=== PATIENT | female | born 1945 | race Caucasian/White ===

== ENCOUNTER → 2016-12-11 | Outpatient (CLI) | payer BC ==
[~2016-12-11] MED LIST: AMPH10TA2 PO; AMPH20TA2 PO; ANAS1TAB19 PO; ASCO1CAP3 PO; ASPI-321 PO; B-COTAB18 PO; BUPR-79 PO; CALC-354 PO; CHOL2000 PO; CLON0.1T12 PO; EZET10TA63 PO; FLUT0.15 NAE; LEVO125T72 PO; MELA1TAB5 PO; MULT-506 PO; OXCA150T2 PO; SIMV80TA2 PO
[2016-12-11 13:25] VITALS: BP 129/76; PULSE 89; TEMP 36.9; O2SAT 94
--- NOTE | 2016-12-11 16:48 | Radiation Oncology Follow-Up ---
Radiation Oncology Follow-Up Date of Visit Dec 11, 2016. Diagnosis (1) Intraductal cancer of right breast Status: Acute Onset Date: 02/02/2016 Stage: 0 Permanent Comment: Abnormal right breast mammogram Status post stereotactic biopsy 02/02/2016 revealing DCIS Estrogen receptor negative and progesterone receptor negative Status post right needle localization lumpectomy and right sentinel lymph node biopsy 03/08/2016 Stage pTis pN0 M0 Status post completion of radiation therapy 05/04/2016 received 3850 cGy utilizing accelerated partial breast irradiation. Last Edited By: Jarod Mayen on Dec 11, 2016 16:42 Interim History Ms. Champagne is a 71-year-old female with a diagnosis of right breast DCIS treated with a lumpectomy and adjuvant radiation therapy which completed in April 2016. The patient was treated with accelerated partial breast radiation and received dose of 3850 cGy in in 10 fractions over 5 days. The patient is currently receiving Arimidex underneath the supervision of Dr. Zaldivar. We are now seeing the patient for follow-up evaluation. Overall, the patient is doing relatively well. She does not any significant side effects from the Arimidex. She has no issues following radiation therapy. She is scheduled for next of the mammograms in January 2017. Allergies Coded Allergies: BEE STING (Unverified Allergy, Unknown, ANAPHYLAXIS-GETTING ALLERY SHOTS, 03/08/16) NO KNOWN DRUG ALLERGIES (Unverified Allergy, Unknown, NONE, 03/08/16) Home Medications Scheduled Amphetamine-Dextroamphetamine 10MG (Adderall 10MG), 1 TAB PO QDL Amphetamine-Dextroamphetamine 20MG (Adderall 20MG), 20 MG PO QAM Anastrozole (Arimidex), 1 TAB PO DAILY Aspirin (Aspirin Adult Low Strengt), 81 MG PO NOON B-Complex Vitamins (Vitamin B Complex), 1 TAB PO QPM Bupropion (Wellbutrin Sr), 150 MG PO BID Calcium Carbonate-Cholecalcife (Caltrate 600+D), 1 TAB PO BID Cholecalciferol (Vitamin D3), 5,000 UNITS PO NOON Clonidine Hcl (Catapres), 0.1 MG PO HS Ezetimibe (Zetia), 10 MG PO NOON Fluticasone Propionate (Nasal) (Flonase Allergy Relief), 2 SPRAYS ABRIL HS Levothyroxine Sodium (Synthroid), 125 MCG PO QAM Melatonin (Kp Melatonin), 1 TAB PO HS Multivitamin (Multivitamin), 1 TAB PO NOON Oxcarbazepine (Trileptal), 75 MG PO BID Simvastatin (Zocor), 80 MG PO NOON Review of Systems Gastrointestinal: Symptoms: WNL Oral: Symptoms: No Problems Respiratory: Symptoms: Dry Cough Other Respiratory: occ dry cough Urinary: Symptoms: Nocturia Comments: nocturia times 1 Skin: Symptoms: No Problems Breast: Right Upper Arm Measurement: 27.5 Right Mid Arm Measurement: 24.0 Right Wrist Measurement: 16.9 Left Upper Arm Measurement: 26.5 Left Mid Arm Measurement: 23.5 Left Wrist Measurement: 16.5 Arm Dominence: Right Patient Cosmetic Evaluation: Excellent Staff Cosmetic Evalaluation: Excellent Physical Exam Vital Signs Date Time Temp Pulse Resp B/P Pulse Ox O2 Delivery O2 Flow Rate FiO2 12/11/16 13:25 36.9 89 18 129/76 94 Pain: Side: Bilateral Patient Pain Scale: 0 - 10 Initial Pain Intensity: 0.0 General Appearance: WD/WN, no apparent distress Eyes: normal inspection Neck: supple, no adenopathy Respiratory/Chest: chest non-tender, lungs clear, normal breath sounds, no respiratory distress Breast: Left breast: no masses, no axillary adenopathy. Right Breast: status post lumpectomy. No late radiation changes noted. No masses or axillary adenopathy. Cardiovascular: regular rate, rhythm, no edema, no gallop, no JVD, no murmur Laboratory Studies Test 09/14/16 08:39 09/18/16 10:02 Sodium Level 141 mmol/L (136-145) Potassium Level 4.1 mmol/L (3.5-5.1) Chloride Level 105 mmol/L (98-107) Carbon Dioxide Level 30 mmol/L (21-32) Anion Gap 6.0 mmol/L (3-11) Blood Urea Nitrogen 18 mg/dl (7-18) Creatinine 1.10 mg/dl (0.60-1.20) Estimated GFR () 59.3 Estimated GFR (Non- 51.2 BUN/Creatinine Ratio 16.3 (10-20) Random Glucose 97 mg/dl (70-99) Calcium Level 8.6 mg/dl (8.5-10.1) Total Bilirubin 0.4 mg/dl (0.2-1) Aspartate Amino Transferase (AST) 20 U/L (15-37) Alanine Aminotransferase (ALT) 39 U/L (12-78) Alkaline Phosphatase 107 U/L (45-117) Total Protein 7.3 gm/dl (6.4-8.2) Albumin 3.5 gm/dl (3.4-5.0) Globulin 3.8 gm/dl (2.5-4.0) Albumin/Globulin Ratio 0.9 (0.9-2) Triglycerides Level 136 mg/dl (0-150) Cholesterol Level 164 mg/dl (0-200) HDL Cholesterol 62 mg/dl LDL Cholesterol, Calculated 75 mg/dl VLDL Cholesterol, Calculated 27 mg/dl Cholesterol/HDL Ratio 2.6 Thyroid Stimulating Hormone (TSH) 6.830 uIu/ml (0.300-4.500) Free Thyroxine 0.93 ng/dl (0.80-1.60) Hepatitis C Antibody NEG (NEG) Additional Studies UNILATERAL RIGHT DIGITAL DIAGNOSTIC MAMMOGRAM 3D/2D WITH CAD: 08/07/2016 CLINICAL HISTORY: 70-year-old woman who presents for first follow-up/new baseline of the right breast status post treatment for breast cancer in which a lumpectomy was performed 03/08/2016. Comparison is made to exams dated: 02/02/2016 stereotactic biopsy, 01/25/2016 mammogram, 10/24/2015 mammogram, 10/21/2014 mammogram, 10/20/2013 mammogram, and mammogram - [facility]. FINDINGS: Right CC and MLO 2-D digital and tomosynthesis images, spot magnification right CC and ML views were obtained. There are scattered areas of fibroglandular density in the right breast. Current study was also evaluated with a Computer Aided Detection (CAD) system. There is expected architectural distortion and associated surgical clips in the 6:00 middle one third of the right breast, at the site of prior lumpectomy. There is mild diffuse skin thickening and minimal trabecular edema. There are no residual microcalcifications near the surgical site. Overall, no suspicious clustered microcalcifications are seen in the right breast. There are a few scattered stable benign coarse calcifications and punctate microcalcifications anteriorly. No obvious new mass or architectural distortion. IMPRESSION: ACR-BI-RADS CATEGORY 3: PROBABLY BENIGN Expected post treatment changes in the right breast, without mammographic evidence of malignancy. A follow-up right mammogram is recommended in 6 months to ensure one-year stability after treatment. Annual left mammography will be due at that time. These results and recommendations were discussed with the patient at the time of the exam. Assessment & Plan Ms. Champagne is a 71-year-old female who presents with right breast DCIS treated with lumpectomy and adjuvant radiation therapy which completed in April 2016. The patient is currently on Arimidex underneath the supervision of Dr. Zaldivar. We are now seeing the patient follow up evaluation. Overall, the patient is relatively well with no significant issues regarding radiation therapy. We are happy with her progress and there is no evidence of recurrence. We would like to see her back in one-year for follow-up evaluation. The patient will continue to also follow with medical oncology and her primary care physician. Again, she has confirmed that her next set of mammograms are already scheduled however we have encouraged her to call us if she has any issues. The patient was encouraged to call so she is in questions or concerns or she would like to be seen earlier. Total Time In Follow-Up I spent 15 minutes examining and counseling the patient. I spent 10 minutes completing this note. Copy To Cricket Zaldivar D.O.; Umair Vann M.D.
== END | disposition home or self-care (01) ==
LOC: C.ONC 13:19
PROVIDERS: ATTEND Radiology Radiation Oncology
DX: C50.911 Malignant neoplasm of unspecified site of right female breast (principal)

== ENCOUNTER → 2017-02-04 | Outpatient (CLI) | payer BC ==
[~2017-02-04] MED LIST changes: -ASCO1CAP3 PO
--- NOTE | 2017-02-04 13:55 | MAMMOGRAPHY REPORT ---
BILATERAL DIGITAL DIAGNOSTIC MAMMOGRAM TOMOSYNTHESIS WITH CAD: 02/04/2017 CLINICAL HISTORY: 71-year-old woman with a personal history of right breast DCIS status post lumpect neil and radiation presents for a 1 year follow-up after treatment. Bilateral screening mammography was performed in addition to evaluation of the surgical site in the right breast. TECHNIQUE: Bilateral CC and MLO to the digital and tomosynthesis images, 2-D right XCCL and spot mag nification right CC and ML views were obtained. Current study was also evaluated with a Computer Aid ed Detection (CAD) system. COMPARISON: Comparison is made to exams dated: 08/07/2016 mammogram, 02/02/2016 mammogram, and 015 mammogram - [facility]. BREAST COMPOSITION: There are scattered areas of fibroglandular density in both breasts. FINDINGS: There is expected architectural distortion and associated surgical clips in the 6:00 to 7: 00 right breast, at the site of prior lumpectomy. There are scattered benign rim calcifications nae aterally. No new suspicious mass, architectural distortion or cluster of microcalcifications is see n in either breast. IMPRESSION: ACR-BI-RADS CATEGORY 3: PROBABLY BENIGN 1. Stable posttreatment changes in the right breast, without mammographic evidence of malignancy. Advise another close follow-up in 6 months to ensure stability status post treatment. 2. Stable mammographic appearance of the left breast, without mammographic evidence of malignancy. Advise follow-up in 1 year for routine screening. These results and recommendations were discussed with the patient at the time of the exam. Approximately 10% of breast cancers are not detected with mammography. A negative mammographic repor t should not delay biopsy if a clinically suggestive mass is present. Cayla Cervantes M.D. ay/:02/04/2017 12:28:08 [employer] Manager: Mago JACOBSON(Rosalba)(Alycia), [facility] letter sent: Personal History 3 BI-RADS Code: ACR-BI-RADS Category 3: Probably Benign
== END | disposition home or self-care (01) ==
LOC: C.MAMM 10:36
PROVIDERS: ATTEND Radiology Radiation Oncology
DX: N64.89 Other specified disorders of breast (principal)

== ENCOUNTER → 2017-03-15 | Outpatient (CLI) | payer BC ==
[~2017-03-15] MED LIST changes: +ASPCH81X PO; +AZEL0.15 NAE; +DEXT1TAB15 PO; +FLUV100T12 PO; +LEVO137T3 PO
[2017-03-15 12:18] LABS: BASO % 0.4 %; BASO ABS # 0.02 K/uL (0-0.2); COMPLETE YES; EOS % 2.9 %; HEMATOCRIT 43.8 % (37-47); LYMPH % 37.9 %; LYMPH ABS # 1.81 K/uL (1.2-3.4); MEAN CELL VOLUME 93.4 fL (80-100); MEAN CORPUSCULAR HEMOGLOBIN 30.7 pg (25-34); MEAN CORPUSCULAR HGB CONC 32.9 g/dl (32-36); MEAN PLATELET VOLUME 9.5 fL (7.4-10.4); MONO % 10.9 %; NEUT % 47.9 %; PLATELET COUNT 283 K/uL (130-400); RED BLOOD COUNT 4.69 M/uL (4.2-5.4); WHITE BLOOD COUNT 4.77 K/uL (4.8-10.8)
[2017-03-15 12:41] LABS: CALCIUM 9.3 mg/dl (8.5-10.1)
[2017-03-15 12:51] LABS: ALT/SGPT 55 U/L (12-78); AST/SGOT 25 U/L (15-37); BLOOD UREA NITROGEN 17 mg/dl (7-18); BUN/CREATININE RATIO 18.7 (10-20); CARBON DIOXIDE 31 mmol/L (21-32); CHLORIDE 105 mmol/L (98-107); CHOLESTEROL 179 mg/dl (0-200); GLUCOSE 98 mg/dl (70-99); POTASSIUM 4.2 mmol/L (3.5-5.1); SODIUM 142 mmol/L (136-145); TRIGLYCERIDES 121 mg/dl (0-150); VERY LOW DENSITY LIPOPROT CALC 24 mg/dl
[2017-03-15 12:55] LABS: ALB/GLOB RATIO 1.1 (0.9-2); ALKALINE PHOSPHATASE 105 U/L (45-117); CHOLESTEROL/HDL RATIO 2.7; HDL CHOLESTEROL 67 mg/dl; LDL CHOLESTEROL CALCULATED 88 mg/dl; THYROID STIMULATING HORMONE 0.559 uIu/ml (0.300-4.500)
--- NOTE | 2017-04-29 11:24 | CODING QUERY NO DIAGNOSIS ---
TREATMENT RENDERED WITHOUT A DIAGNOSIS To promote full compliance with coding requirements relating to patient care, physician participation is requested in all cases of stranding supervisor uncertainty. Please assist us with providing a diagnosis/symptom for the test(s) below: A diagnosis/symptom was not documented on your Order. A valid diagnosis/symptom is required to bill all insurances. Please remember that we are unable to code a diagnosis of rule out, probable, possible, questionable, or suspected. Tests that require a diagnosis: * LDH 03/15/17 DIAGNOSIS: * CBC W AUTO DIFF 03/15/17 DIAGNOSIS: Provider Signature: Date: Thank you Thelma Moody Health Information Management Once completed, please kindly fax back to [phone] For questions please call [phone]
== END | disposition home or self-care (01) ==
LOC: C.LABPVFM 09:08
PROVIDERS: ATTEND Family Medicine
DX: E78.00 Pure hypercholesterolemia, unspecified (principal); E89.0 Postprocedural hypothyroidism; I10 Essential (primary) hypertension; D05.10 Intraductal carcinoma in situ of unspecified breast

== ENCOUNTER → 2017-05-28 | Outpatient (CLI) | payer BC ==
[~2017-05-28] VITALS: Ht 157.5 cm; Wt 72.0 kg
[~2017-05-28] MED LIST changes: -ASPCH81X PO; -AZEL0.15 NAE; -DEXT1TAB15 PO; -FLUV100T12 PO; -LEVO137T3 PO
[2017-05-28 15:38] VITALS: BP 118/76; PULSE 101; Ht 157.5 cm; Wt 72.0 kg
== END | disposition home or self-care (01) ==
LOC: C.NEUR 15:14
PROVIDERS: ATTEND Internal Medicine Pulmonary Disease
DX: G47.30 Sleep apnea, unspecified (principal); T63.91XA Toxic effect of contact with unspecified venomous animal, accidental (unintentional), initial encounter

== ENCOUNTER → 2017-08-06 | Outpatient (CLI) | payer BC ==
[2017-08-06 13:08] LABS: ALT/SGPT 62 U/L (12-78); AST/SGOT 29 U/L (15-37); BLOOD UREA NITROGEN 17 mg/dl (7-18); BUN/CREATININE RATIO 17.5 (10-20); CALCIUM 9.6 mg/dl (8.5-10.1); CARBON DIOXIDE 29 mmol/L (21-32); CHLORIDE 104 mmol/L (98-107); CHOLESTEROL 171 mg/dl (0-200); CREATININE 0.95 mg/dl (0.60-1.20); GLUCOSE 97 mg/dl (70-99); POTASSIUM 4.2 mmol/L (3.5-5.1); SODIUM 141 mmol/L (136-145); TRIGLYCERIDES 136 mg/dl (0-150); VERY LOW DENSITY LIPOPROT CALC 27 mg/dl
[2017-08-06 13:23] LABS: ALB/GLOB RATIO 1.1 (0.9-2); ALKALINE PHOSPHATASE 113 U/L (45-117); CHOLESTEROL/HDL RATIO 2.7; HDL CHOLESTEROL 64 mg/dl; LDL CHOLESTEROL CALCULATED 80 mg/dl
[2017-08-06 17:29] LABS: BASO % 0.2 %; BASO ABS # 0.01 K/uL (0-0.2); COMPLETE YES; EOS % 2.9 %; HEMATOCRIT 41.5 % (37-47); IG% 0.2 %; LYMPH % 33.7 %; LYMPH ABS # 2.07 K/uL (1.2-3.4); MEAN CELL VOLUME 93.3 fL (80-100); MEAN CORPUSCULAR HEMOGLOBIN 31.7 pg (25-34); MEAN PLATELET VOLUME 10.1 fL (7.4-10.4); MONO % 11.4 %; NEUT % 51.6 %; PLATELET COUNT 293 K/uL (130-400); RED BLOOD COUNT 4.45 M/uL (4.2-5.4); WHITE BLOOD COUNT 6.14 K/uL (4.8-10.8)
== END | disposition home or self-care (01) ==
LOC: C.LABPVFM 08:05
PROVIDERS: ATTEND Family Medicine
DX: D05.12 Intraductal carcinoma in situ of left breast (principal); E78.00 Pure hypercholesterolemia, unspecified; E89.0 Postprocedural hypothyroidism

== ENCOUNTER → 2017-08-08 | Outpatient (CLI) | payer BC ==
--- NOTE | 2017-08-08 12:38 | MAMMOGRAPHY REPORT ---
UNILATERAL RIGHT DIGITAL DIAGNOSTIC MAMMOGRAM TOMOSYNTHESIS WITH CAD: 08/08/2017 CLINICAL HISTORY: History of right breast cancer status post lumpectomy February 2016 as well as radiati on therapy. The patient reports no current complaints. TECHNIQUE: Breast tomosynthesis in addition to standard 2D mammography was performed. Current study was also evaluated with a Computer Aided Detection (CAD) system. Right CC and MLO 2-D and tomosynthe sis images and spot magnification right cc and ML views were obtained. COMPARISON: Comparison is made to exams dated: 02/04/2017 mammogram, 08/07/2016 mammogram, 01/25/2016 ma mmogram, 10/24/2015 mammogram, 10/21/2014 mammogram, and 10/20/2013 mammogram - [facility]ter. BREAST COMPOSITION: There are scattered areas of fibroglandular density in the right breast. FINDINGS: Again noted are postsurgical changes in the right central breast from prior lumpectomy, inc luding stable architectural distortion and surgical clips at the lumpectomy bed. A linear scar marke r denotes a scar on the right breast. Spot magnification views of the lumpectomy bed demonstrate no suspicious masses or clusters of microcalcifications. The remainder of the right breast is stable co mpared to prior exams, without suspicious masses, calcifications, or areas of architectural distortio n noted. Scattered benign-appearing calcifications are stable. IMPRESSION: ACR-BI-RADS CATEGORY 3: PROBABLY BENIGN Stable postsurgical changes in the right breast from prior lumpectomy, without mammographic evidence of malignancy in the right breast. Recommend bilateral diagnostic mammograms in 6 months, to reevalu ate the right breast post treatment changes and for routine mammography of the left breast. The patient has been verbally notified of the results. Approximately 10% of breast cancers are not detected with mammography. A negative mammographic report should not delay biopsy if a clinically suggestive mass is present. Italia Whitehead M.D. /:08/08/2017 10:58:39 Grounds Maintenance Worker: Zelda JACOBSON(Rosalba)(Alycia), [facility] letter sent: Personal History 3 BI-RADS Code: ACR-BI-RADS Category 3: Probably Benign
== END | disposition home or self-care (01) ==
LOC: C.MAMM 10:36
PROVIDERS: ATTEND Nurse Practitioner Family
DX: R92.8 Other abnormal and inconclusive findings on diagnostic imaging of breast (principal); Z98.890 Other specified postprocedural states

== ENCOUNTER → 2017-10-09 | Day surgery (SDC) | payer BC ==
[2017-09-25 14:09] VITALS: BMI 28.0
[~2017-10-09] VITALS: Ht 160 cm; Wt 71.4 kg
[~2017-10-09] MED LIST changes: -AMPH10TA2 PO; -AMPH20TA2 PO; +ASPCH81X PO; -ASPI-321 PO; +AZEL0.15 NAE; -B-COTAB18 PO; -CALC-354 PO; -CLON0.1T12 PO; +DEXT1TAB15 PO; +FLUV100T12 PO; -LEVO125T72 PO; +LEVO137T3 PO; +PROPOFOL IV EMULSION 10 MG/ML 20 ML VIAL IV ONE; +SODIUM CHLORIDE 0.9% 500ML 500 ML IV ONE
[2017-10-09 13:34] VITALS: Ht 160 cm; Wt 71.4 kg
--- NOTE | 2017-10-09 13:46 | Endo History and Physical ---
History & Physical Date of Service: Oct 09, 2017. Chief Complaint: HX OF POLYPS Referring Physician: DR STODDARD History of Present Illness 72 yo CF who presents for colonoscopy secondary to history of colon polyps. Past Medical History Arthritis, Anxiety, Cancer, High Cholesterol, Sleep Apnea, Thyroid Disease, Depression Past Surgical History Hx Cardiac Surgery: No Hx Pacemaker: No Hx Abdominal Surgery: No Hx of Implantable Prosthesis: No Hx Post-Op Nausea and Vomiting: No Hx Cancer Surgery: Yes (RT BREAST LUMPECTOMY) Hx Thoracic Surgery: No Hx Orthopedic: No Hx Urinary Tract Surgery: No Family History Polyp, IBD Social History Smoking Status: Former Smoker Hx Substance Use: No Hx Alcohol Use: No Allergies Coded Allergies: BEE STING (Unverified Allergy, Unknown, ANAPHYLAXIS-GETTING ALLERY SHOTS, 10/09/17) NO KNOWN DRUG ALLERGIES (Unverified Allergy, Unknown, NONE, 10/09/17) Current Medications Reported Home Medications Medications Dose Route/Sig Max Daily Dose Days Date Category Wellbutrin Sr (Bupropion HCl) 150 Mg Ertab 150 Mg PO BID 09/25/17 Reported Levothyroxine Sodium 137 Mcg Tab 1 Tab PO QAM 09/25/17 Reported Luvox (Fluvoxamine Maleate) 100 Mg Tab 50 Mg PO HS 09/25/17 Reported Dextroamphetamine Sulfate 10 Mg Tab 1 Tab PO BID 30 09/25/17 Reported Astepro (Azelastine Hcl) 0.15 % Spr 2 [place] ABRIL DAILY 09/25/17 Reported Aspirin Chewable (Aspirin) 81 Mg Chew 81 Mg PO DAILY AT NOON 09/25/17 Reported Arimidex (Anastrozole) 1 Mg Tab 1 Tab PO QAM 90 06/12/16 Reported Flonase Allergy Relief (Fluticasone Propionate (Nasal)) 50 Mcg/Act Spr 2 Sprays ABRIL HS 04/03/16 Reported Kp Melatonin (Melatonin) 3 Mg Tab 1 Tab PO HS 30 02/28/16 Reported Vitamin D3 (Cholecalciferol) 2,000 Unit Cap 5,000 Units PO NOON 90 02/28/16 Reported Multivitamin (Multivitamins) Tab 1 Tab PO NOON 02/28/16 Reported Zocor (Simvastatin) 80 Mg Tab 80 Mg PO NOON 02/28/16 Reported Trileptal (Oxcarbazepine) 150 Mg Tab 75 Mg PO QPM 02/28/16 Reported Zetia (Ezetimibe) 10 Mg Tab 10 Mg PO NOON 03/01/10 Reported Vital Signs Weight (Kilograms): 71.36 Height (Feet): 5 Height (Inches): 3 Date Time Temp Pulse Resp B/P (MAP) Pulse Ox O2 Delivery O2 Flow Rate FiO2 10/09/17 13:41 37.2 104 18 152/90 (110) 95 Room Air Physical Exam General Appearance: WD/WN, no apparent distress Respiratory/Chest: Auscultation: breath sounds normal Cardiovascular: Heart Auscultation: RRR Abdomen: Bowel Sounds: normal Inspection & Palpation: soft, non-distended, no tenderness, guarding & rebound Assessment and Plan Assessment: 72 yo CF who presents for colonoscopy secondary to history of colon polyps. Plan: Proceed with colonoscopy.
--- NOTE | 2017-10-09 14:28 | Discharge Instructions ---
Endoscopy Patient Instructions Date / Procedure(s) Performed Oct 09, 2017. Colonoscopy Allergy Information Coded Allergies: BEE STING (Unverified Allergy, Unknown, ANAPHYLAXIS-GETTING ALLERY SHOTS, 10/09/17) NO KNOWN DRUG ALLERGIES (Unverified Allergy, Unknown, NONE, 10/09/17) Discharge Date / Findings Oct 09, 2017. Colon polyps Diverticulosis Internal hemorrhoids Medication Instructions OK to resume all medications today as prescribed Reported Home Medications Medications Dose Route/Sig Max Daily Dose Days Date Category Wellbutrin Sr (Bupropion HCl) 150 Mg Ertab 150 Mg PO BID 09/25/17 Reported Levothyroxine Sodium 137 Mcg Tab 1 Tab PO QAM 09/25/17 Reported Luvox (Fluvoxamine Maleate) 100 Mg Tab 50 Mg PO HS 09/25/17 Reported Dextroamphetamine Sulfate 10 Mg Tab 1 Tab PO BID 30 09/25/17 Reported Astepro (Azelastine Hcl) 0.15 % Spr 2 [place] ABRIL DAILY 09/25/17 Reported Aspirin Chewable (Aspirin) 81 Mg Chew 81 Mg PO DAILY AT NOON 09/25/17 Reported Arimidex (Anastrozole) 1 Mg Tab 1 Tab PO QAM 90 06/12/16 Reported Flonase Allergy Relief (Fluticasone Propionate (Nasal)) 50 Mcg/Act Spr 2 Sprays ABRIL HS 04/03/16 Reported Kp Melatonin (Melatonin) 3 Mg Tab 1 Tab PO HS 30 02/28/16 Reported Vitamin D3 (Cholecalciferol) 2,000 Unit Cap 5,000 Units PO NOON 90 02/28/16 Reported Multivitamin (Multivitamins) Tab 1 Tab PO NOON 02/28/16 Reported Zocor (Simvastatin) 80 Mg Tab 80 Mg PO NOON 02/28/16 Reported Trileptal (Oxcarbazepine) 150 Mg Tab 75 Mg PO QPM 02/28/16 Reported Zetia (Ezetimibe) 10 Mg Tab 10 Mg PO NOON 03/01/10 Reported Provider Instructions Activity Restrictions - No exercising or heavy lifting for 24 hours. - Do not drink alcohol the day of the procedure. - Do not drive a car or operate machinery until the day after the procedure. - Do not make any important decisions or sign important papers in 24 hours after the procedure. Following Day: - Return to full activity which may include returning to work/school. Diet Start your diet with liquids and light foods (jello, soup, juice, toast). Then eat your usual diet if not nauseated. Treatment For Common After Affects For mild abdominal pain, bloating, or excessive gas: - Rest - Eat lightly - Lie on right side Follow-Up Information Follow-up with DR STODDARD as scheduled Anesthesia Information What You Should Know You have had a procedure that required some medicine to reduce anxiety and discomfort. This treatment is called moderate sedation. After receiving the treatment, you may be sleepy, but you will be able to breathe on your own. The effects of the treatment may last for several hours. Follow these instructions along with Activity/Diet recommendations noted above: * Do NOT do anything where dizziness or clumsiness would be dangerous. * Rest quietly at home today, then you can be up and about tomorrow. * Have a responsible person stay with you the rest of today. * You may have had an I.V. today. If so, you may take the dressing off later today. Recommendations Call your doctor if: * Trouble breathing * Continuous vomiting for more than 24 hours * Temperature above 101 degrees * Severe abdominal pain or bloating * Pain not relieved by pain medicine ordered * There is increased drainage or redness from any incision * A large amount of rectal bleeding greater than 2-3 tablespoons. (If you had a polyp/s removed or have hemorrhoids, a small amount of blood - from the rectum is to be expected.) * You have any unanswered questions or concerns. IN THE EVENT OF A SERIOUS EMERGENCY, GO TO THE NEAREST EMERGENCY ROOM Your discharge instructions were prepared by provider Sriram Mcdermott. Patient Instructions Signature Page Nubia Champagne Patient (or Guardian) Signature/Date: I have read and understand the instructions given to me by my caregivers. Caregiver/RN/Doctor Signature/Date: The above-named patient and/or guardian has received patient instructions on this date. + Original Patient Signature Page (only) stays with chart. Please make copy for patient.
--- NOTE | 2017-10-09 14:36 | GI REPORT ---
Procedure Date: 10/09/2017 1:41 PM Procedure: Colonoscopy Indications: High risk colon cancer surveillance: Personal history of colonic polyps Medicines: Monitored Anesthesia Care Complications: No immediate complications. Estimated Blood Loss: Estimated blood loss: none. Procedure: Pre-Anesthesia Assessment: - Prior to the procedure, a History and Physical was performed, and patient medications and allergies were reviewed. The patient's tolerance of previous anesthesia was also reviewed. The risks and benefits of the procedure and the sedation options and risks were discussed with the patient. All questions were answered, and informed consent was obtained. Prior Anticoagulants: The patient has taken aspirin, last dose was day of procedure. ASA Grade Assessment: II - A patient with mild systemic disease. After reviewing the risks and benefits, the patient was deemed in satisfactory condition to undergo the procedure. After I obtained informed consent, the scope was passed under direct vision. Throughout the procedure, the patient's blood pressure, pulse, and oxygen saturations were monitored continuously. The scope was introduced through the anus and advanced to the terminal ileum. The colonoscopy was performed without difficulty. The patient tolerated the procedure well. The quality of the bowel preparation was good. The terminal ileum, ileocecal valve, appendiceal orifice, and rectum were photographed. Findings: A 5 mm polyp was found in the ascending colon. The polyp was sessile. The polyp was removed with a hot snare. Resection and retrieval were complete. A 4 mm polyp was found in the sigmoid colon. The polyp was sessile. The polyp was removed with a cold snare. Resection and retrieval were complete. Multiple small-mouthed diverticula were found in the sigmoid colon. Non-bleeding internal hemorrhoids were found during retroflexion. The hemorrhoids were small. Impression: - One 5 mm polyp in the ascending colon, removed with a hot snare. Resected and retrieved. - One 4 mm polyp in the sigmoid colon, removed with a cold snare. Resected and retrieved. - Diverticulosis in the sigmoid colon. - Non-bleeding internal hemorrhoids. Recommendation: - Resume previous diet. - Continue present medications. - Repeat colonoscopy for surveillance based on pathology results. - Return to primary care physician as previously scheduled. Sriram Mcdermott DO 10/09/2017 2:35:47 PM This report has been signed electronically. Note Initiated On: 10/09/2017 1:41 PM I attest to the content of the Intraoperative Record and orders documented therein, exceptions below
[2017-10-09 14:55] VITALS: BP 142/84; PULSE 82; O2SAT 96
--- NOTE | 2017-10-09 15:02 | Anesthesiology Progress Note ---
Anesthesia Post Op Note Date & Time Oct 09, 2017 at 15:02 Vital Signs Pain Intensity: 0 Vital Signs Past 12 Hours Date Time Temp Pulse Resp B/P (MAP) Pulse Ox O2 Delivery O2 Flow Rate FiO2 10/09/17 14:55 82 20 142/84 (103) 96 Room Air 10/09/17 14:40 37.2 84 20 132/84 (100) 94 Room Air 10/09/17 14:25 87 16 111/73 (86) 93 Room Air 10/09/17 13:41 37.2 104 18 152/90 (110) 95 Room Air Notes Mental Status: alert / awake / arousable, participated in evaluation Pt Amnestic to Procedure: Yes Nausea / Vomiting: adequately controlled Pain: adequately controlled Airway Patency, RR, SpO2: stable & adequate BP & HR: stable & adequate Hydration State: stable & adequate Anesthetic Complications: no major complications apparent
== END | disposition home or self-care (01) ==
LOC: C.GI 13:20
PROVIDERS: ATTEND Internal Medicine
DX: Z12.11 Encounter for screening for malignant neoplasm of colon (principal); D12.2 Benign neoplasm of ascending colon; D12.5 Benign neoplasm of sigmoid colon; K57.30 Diverticulosis of large intestine without perforation or abscess without bleeding; K64.8 Other hemorrhoids; Z86.010 Personal history of colon polyps; F41.9 Anxiety disorder, unspecified; E78.00 Pure hypercholesterolemia, unspecified; F32.9 Major depressive disorder, single episode, unspecified; G47.33 Obstructive sleep apnea (adult) (pediatric); Z90.89 Acquired absence of other organs; Z85.3 Personal history of malignant neoplasm of breast; Z87.891 Personal history of nicotine dependence; Z79.899 Other long term (current) drug therapy; Z79.82 Long term (current) use of aspirin; Z83.71 Family history of colonic polyps

== ENCOUNTER → 2017-11-08 | Outpatient (CLI) | payer BC ==
[~2017-11-08] MED LIST changes: -PROPOFOL IV EMULSION 10 MG/ML 20 ML VIAL IV ONE; -SODIUM CHLORIDE 0.9% 500ML 500 ML IV ONE
--- NOTE | 2017-11-15 11:25 | CODING QUERY MEDICAL NECESSITY ---
SUPPORTING DIAGNOSIS NEEDED Dr. George, A supporting diagnosis is required for the test/procedure performed on this patient in order for us to be reimbursed by the patient's insurance. Please provide a supporting diagnosis for the following test/procedure listed below next to the test name along with your signature. *If there is no additional diagnosis for this patient that would support the following test/procedure please document that below next to the test/procedure. Test(s)/Procedure(s) that require a supporting diagnosis: * ([id number]) B12 VITAMIN LEVEL DIAGNOSIS: * ([id number]) FOLATE LEVEL DIAGNOSIS: DATE OF SERVICE: 11/08/17 Provider Signature: Date: Thank you Yann Daily [facility] Information Management Once completed, please kindly fax back to [phone] For questions please call [phone]
== END | disposition home or self-care (01) ==
LOC: C.LABPVFM 15:46
PROVIDERS: ATTEND Student in an Organized Health Care Education/Training Program
DX: G31.84 Mild cognitive impairment of uncertain or unknown etiology (principal); D51.9 Vitamin B12 deficiency anemia, unspecified

== ENCOUNTER → 2017-12-12 | Outpatient (CLI) | payer BC ==
[2017-12-12 13:23] VITALS: BP 122/79; PULSE 111; TEMP 36.8; O2SAT 94
--- NOTE | 2017-12-12 16:40 | Radiation Oncology Follow-Up ---
Radiation Oncology Follow-Up Date of Visit Dec 12, 2017. Reason For Visit Annual follow-up Radiation Completion Date 05/04/16 - APBI Diagnosis (1) Intraductal cancer of right breast Status: Resolved Onset Date: 02/02/2016 Stage: 0 Permanent Comment: Abnormal right breast mammogram Status post stereotactic biopsy 02/02/2016 revealing DCIS Estrogen receptor negative and progesterone receptor negative Status post right needle localization lumpectomy and right sentinel lymph node biopsy 03/08/2016 Stage pTis pN0 M0 Status post completion of radiation therapy 05/04/2016 received 3850 cGy utilizing accelerated partial breast irradiation. Last Edited By: Jarod Mayen on Dec 11, 2016 16:42 History of Present Illness Ms. Champagne is without a family history of breast cancer. She underwent bilateral digital screening mammograms on 10/24/2015. This revealed a new 1.6 cm mass in the far posterior right breast along the posterior nipple line on the MLO view. Recommendations for spot compression, true lateral views and targeted ultrasound are recommended. Also noted are new microcalcifications in a linear distribution extending approximately 2 cm in AP dimension in the lower outer middle one third of the right breast which warrant Spot magnification views. On 01/25/2016 patient underwent a unilateral right digital diagnostic mammogram. The previously described mass in the right superior portion of the breast on the ML view was no longer evident. A linear scar marker denoting the area of recent surgical excision of a sebaceous cyst overlies the area of the previously seen mass indicating that this mammographic mass corresponds with the excised benign sebaceous cyst. Spot magnification views of the right breast demonstrates a 1.6 cm group of faint amorphous calcifications in the right lower outer quadrant which is new compared to prior exam. These are indeterminate and stereotactic biopsy was recommended with a BI-RADS Category 4B. On 02/02/2016 the patient underwent a stereotactic guided biopsy of the right breast with unilateral right digital diagnostic mammogram and postprocedure imaging for marker placement. 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 The size of the DCIS was noted in multiple foci 2 blocks measuring 0.8 cm in aggregate dimension. Comedo necrosis was seen. The architectural pattern was solid microcalcifications were present. Immunohistochemical stain for estrogen and progesterone were negative. Internal and external controls were appropriately positive confirming an estrogen receptor negative DCIS. Case: [id number]. Patient was seen by Dr. Josesito Mobley. He discussed treatment options with the patient including breast conserving therapy which the patient agreed to. Therefore on 03/08/2016 the patient underwent a right breast lumpectomy and sentinel node biopsy. The right breast lumpectomy revealed residual ductal carcinoma in situ, apocrine type, intermediate grade with necrosis. There was no evidence of invasive carcinoma. On the initial lumpectomy specimen DCIS was present at less than 0.1 cm from the inked lateral and medial margins. Separately submitted were additional medial and lateral margins which are negative. The DCIS extended through 6 sets impaired sections indicating a size of approximately 2.4 cm x 1.0 x 0.7 cm. 3 sentinel nodes were identified and all 3 were negative for metastatic carcinoma on routine stains and by immunohistochemistry to cytokeratin. 3 non-sentinel nodes were identified and all 3 were benign on routine stains. The final stage is therefore a pTis pN0 ER negative. Case: [id number]. Patient was seen by Dr. Zaldivar for evaluation of the role of adjuvant therapy. He discussed the fact that since the lesion is ER/MI negative but the use of aromatase inhibitors or tamoxifen could be discussed but was felt to be a little benefit in preventing disease in the affected breast but could be utilized to prevent and decrease the risk of invasive carcinoma in the opposite breast. She is considering the use of aromatase inhibitors for this purpose. He also talked to her about the role of adjuvant radiation and is for this reason to discuss this role that the patient is seen in referral. She underwent a CT simulation was found to be a candidate for accelerated partial breast treatment. She was completed 05/04/2016. She received 3850 cGy Interim History She has been doing well over this past year. She denies any changes to her breast. She is noted no masses or tenderness no axillary adenopathy. She is up -to-date on mammography. She is on Arimidex and denies side effects. She is up -to-date on DEXA scanning. We did review the chart and her next scan would be due in August. Allergies Coded Allergies: BEE STING (Unverified Allergy, Unknown, ANAPHYLAXIS-GETTING ALLERY SHOTS, 10/09/17) NO KNOWN DRUG ALLERGIES (Unverified Allergy, Unknown, NONE, 10/09/17) Home Medications Scheduled Anastrozole (Arimidex), 1 TAB PO QAM Aspirin (Aspirin Chewable), 81 MG PO DAILY AT NOON Azelastine Hcl (Astepro), 2 SPRY ABRIL DAILY Bupropion (Wellbutrin Sr), 150 MG PO BID Cholecalciferol (Vitamin D3), 5,000 UNITS PO NOON Dextroamphetamine Sulfate (Dextroamphetamine Sulfate), 1 TAB PO BID Ezetimibe (Zetia), 10 MG PO NOON Fluticasone Propionate (Nasal) (Flonase Allergy Relief), 2 SPRAYS ABRIL HS Fluvoxamine Maleate (Luvox), 50 MG PO HS Levothyroxine Sodium (Levothyroxine Sodium), 1 TAB PO QAM Melatonin (Kp Melatonin), 1 TAB PO HS Multivitamin (Multivitamin), 1 TAB PO NOON Simvastatin (Zocor), 80 MG PO NOON Review of Systems Gastrointestinal: Symptoms: WNL GI Comments: Slight Constipation Oral: Symptoms: No Problems Respiratory: Symptoms: WNL Urinary: Symptoms: WNL Skin: Symptoms: No Problems Breast: Right Upper Arm Measurement: 26.0 Right Mid Arm Measurement: 23.4 Right Wrist Measurement: 16.4 Left Upper Arm Measurement: 27.0 Left Mid Arm Measurement: 23.3 Left Wrist Measurement: 16.2 Arm Dominence: Right Physical Exam Vital Signs Date Time Temp Pulse Resp B/P (MAP) Pulse Ox O2 Delivery O2 Flow Rate FiO2 12/12/17 13:23 36.8 111 16 122/79 94 Fatigue: None General Appearance: no apparent distress Eyes: normal inspection, EOMI ENT: normal ENT inspection, hearing grossly normal Neck: no adenopathy, thyroid normal Respiratory/Chest: lungs clear, no respiratory distress, no accessory muscle use Breast: Breast examination reveals no masses or tenderness and no axillary adenopathy. Well-healed incisions of the right breast. She has no skin retractions or nipple changes. Using the [place] score cosmesis she has a good outcome. The left breast showed no masses or tenderness and no axillary adenopathy. Cardiovascular: regular rate, rhythm, no gallop, no murmur Abdomen: non tender, soft, no organomegaly Extremities: no pedal edema Neurologic/Psychiatric: no motor/sensory deficits, alert, normal mood/affect Skin: warm/dry Pain Management Patient Reports Pain: No Pain Management Plan She denied pain therefore requires no pain management. Laboratory Laboratory Results: not applicable Pathology Pathology Results: not applicable Imaging Imaging Studies: were reviewed, and pertinent findings noted below Imaging Comments Patient: ANAI CHAMPAGNE [facility] Rec: [id number] Address1: [address] Address2: [address] Acct ID: [id number] Date: 1945 Sex: F Ref Phy: Daysi Schaefer PA-C Att Phy: Daysi Schaefer PA-C Kirti Phy: Umair Vann M.D. Inter Phy: Cayla Cervantes MD [facility] Zip: [place] [address] SC: [id number] Report #: [id number] Front Desk Agent: STEW Diagnosis: 6 MONTH F/U BILATERAL Service Date: 02/04/17 MNE: [id number] Ordering Dr: Daysi Schaefer PA-C CC: Daysi Schaefer PA-C CONF: DICTATED BY: Cayla Cervantes MD MAMMOGRAPHY REPORT BILATERAL DIGITAL DIAGNOSTIC MAMMOGRAM TOMOSYNTHESIS WITH CAD: 02/04/2017 CLINICAL HISTORY: 71-year-old woman with a personal history of right breast DCIS status post lumpectomy and radiation presents for a 1 year follow-up after treatment. Bilateral screening mammography was performed in addition to evaluation of the surgical site in the right breast. TECHNIQUE: Bilateral CC and MLO to the digital and tomosynthesis images, 2-D right XCCL and spot magnification right CC and ML views were obtained. Current study was also evaluated with a Computer Aided Detection (CAD) system. COMPARISON: Comparison is made to exams dated: 08/07/2016 mammogram, 02/02/2016 mammogram, and 10/24/2015 mammogram - [facility]. BREAST COMPOSITION: There are scattered areas of fibroglandular density in both breasts. FINDINGS: There is expected architectural distortion and associated surgical clips in the 6:00 to 7:00 right breast, at the site of prior lumpectomy. There are scattered benign rim calcifications bilaterally. No new suspicious mass, architectural distortion or cluster of microcalcifications is seen in either breast. IMPRESSION: ACR-BI-RADS CATEGORY 3: PROBABLY BENIGN 1. Stable posttreatment changes in the right breast, without mammographic evidence of malignancy. Advise another close follow-up in 6 months to ensure stability status post treatment. 2. Stable mammographic appearance of the left breast, without mammographic evidence of malignancy. Advise follow-up in 1 year for routine screening. These results and recommendations were discussed with the patient at the time of the exam. Approximately 10% of breast cancers are not detected with mammography. A negative mammographic report should not delay biopsy if a clinically suggestive mass is present. Cayla Cervantes M.D. ay/:02/04/2017 12:28:08 Fax Machine Operator: Mago Fritz RT(Rosalba)(Alycia), [facility] letter sent: Personal History 3 BI-RADS Code: ACR-BI-RADS Category 3: Probably Benign Dictated by: Cayla Cervantes MD Signed by: Cayla Cervantes MD Patient: ANAI CHAMPAGNE [facility] Rec: [id number] Address1: [address] [place] [address] Address2: [place] [address] Acct ID: [id number] Date: 1945 Sex: F Ref Phy: Umair Vann M.D. Att Phy: Luzma Petersen CRNP Kirti Phy: Umair Vann M.D. Inter Phy: Italia Whitehead MD [facility] Zip: [place] [address] SC: [id number] Report #: [id number] Front Desk Agent: [facility] Diagnosis: 6 MO F/U RT Service Date: 08/08/17 MNE: [id number] Ordering Dr: Luzma Petersen CC: Luzma Petersen CRNP CONF: DICTATED BY: Italia Whitehead MD MAMMOGRAPHY REPORT UNILATERAL RIGHT DIGITAL DIAGNOSTIC MAMMOGRAM TOMOSYNTHESIS WITH CAD: 08/08/2017 CLINICAL HISTORY: History of right breast cancer status post lumpectomy February 2016 as well as radiation therapy. The patient reports no current complaints. TECHNIQUE: Breast tomosynthesis in addition to standard 2D mammography was performed. Current study was also evaluated with a Computer Aided Detection (CAD ) system. Right CC and MLO 2-D and tomosynthesis images and spot magnification right cc and ML views were obtained. COMPARISON: Comparison is made to exams dated: 02/04/2017 mammogram, 08/07/2016 mammogram, 01/25/2016 mammogram, 10/24/2015 mammogram, 10/21/2014 mammogram, and 10/20/2013 mammogram - [facility]. BREAST COMPOSITION: There are scattered areas of fibroglandular density in the right breast. FINDINGS: Again noted are postsurgical changes in the right central breast from prior lumpectomy, including stable architectural distortion and surgical clips at the lumpectomy bed. A linear scar marker denotes a scar on the right breast. Spot magnification views of the lumpectomy bed demonstrate no suspicious masses or clusters of microcalcifications. The remainder of the right breast is stable compared to prior exams, without suspicious masses, calcifications, or areas of architectural distortion noted. Scattered benign- appearing calcifications are stable. IMPRESSION: ACR-BI-RADS CATEGORY 3: PROBABLY BENIGN Stable postsurgical changes in the right breast from prior lumpectomy, without mammographic evidence of malignancy in the right breast. Recommend bilateral diagnostic mammograms in 6 months, to reevaluate the right breast post treatment changes and for routine mammography of the left breast. The patient has been verbally notified of the results. Approximately 10% of breast cancers are not detected with mammography. A negative mammographic report should not delay biopsy if a clinically suggestive mass is present. Italia Whitehead M.D. ah/:08/08/2017 10:58:39 Fax Machine Operator: Zelda AVILES)(Alycia), [facility] letter sent: Personal History 3 BI-RADS Code: ACR-BI-RADS Category 3: Probably Benign Dictated by: Italia Whitehead MD Signed by: Italia Whitehead MD Assessment & Plan Plan: Continue scheduled mammography. Continue regular follow-up with medical oncology. She hasn't appointment scheduled. She is going to stop up today at their office to see about laboratory studies to be done prior to her visit. We reviewed that the DEXA scan would do August 2018. We'll defer that to medical oncology. Continue regular follow-up with her primary care physician. We asked her to return to our office in 1 year. She may call if she has any questions or concerns in the interim. Total Time In Follow-Up I spent 20 minutes speaking to the patient and performing examination. I spent 15 minutes reviewing information in completing this note. Copy To Cricket Zaldivar D.O.; Umair Vann M.D.
== END | disposition home or self-care (01) ==
LOC: C.ONC 13:01
PROVIDERS: ATTEND Physician Assistant Medical
DX: Z08 Encounter for follow-up examination after completed treatment for malignant neoplasm (principal); Z92.3 Personal history of irradiation; Z85.3 Personal history of malignant neoplasm of breast

== ENCOUNTER → 2017-12-17 | Outpatient (CLI) | payer BC ==
[~2017-12-17] MED LIST changes: -OXCA150T2 PO
[2017-12-17 13:22] LABS: BLOOD UREA NITROGEN 17 mg/dl (7-18); CALCIUM 9.5 mg/dl (8.5-10.1); CARBON DIOXIDE 27 mmol/L (21-32); CREATININE 1.03 mg/dl (0.60-1.20); GLUCOSE 99 mg/dl (70-99); POTASSIUM 4.3 mmol/L (3.5-5.1); SODIUM 138 mmol/L (136-145)
== END | disposition home or self-care (01) ==
LOC: C.LABPVFM 08:30
PROVIDERS: ATTEND Family Medicine
DX: E89.0 Postprocedural hypothyroidism (principal); I10 Essential (primary) hypertension

== ENCOUNTER → 2018-01-24 | Outpatient (CLI) | payer BC ==
--- NOTE | 2018-01-24 13:46 | DIAGNOSTIC IMAGING REPORT ---
ABDOMEN 2VIEW W/PA CHEST RTN HISTORY: 72 years-old Female CONSTIPATION acute constipation COMPARISON: None available TECHNIQUE: PA view of the chest with erect and supine views of the abdomen FINDINGS: Cardiomediastinal and hilar silhouettes are within normal limits. Atherosclerosis of the aorta. No pneumothorax, pleural effusion, overt pulmonary edema or focal airspace consolidation. Linear subsegmental left basilar opacities suggest atelectasis. The bones of the chest appear grossly intact. Surgical clips project over the right breast. No pneumoperitoneum on the upright projection. The bowel gas pattern is nonobstructive. No urolith or organomegaly identified. Calcifications of the pelvis suggest phleboliths. There is a moderate amount of formed stool throughout the colon, notably involving the cecum, ascending, transverse and descending segments. No significant stool distention of the rectum. Degenerative changes are noted throughout the spine, hips and pelvis. No fracture identified. IMPRESSION: 1. No acute process of the chest. 2. Moderate volume of formed stool throughout the colon suggests constipation. 3. Nonobstructive bowel gas pattern. The above report was generated using voice recognition software. It may contain grammatical, syntax or spelling errors. Electronically signed by: Derrell Chavez M.D. 01/24/2018 1:44 PM Dictated Date/Time: 01/24/2018 1:42 PM
[2018-01-24 17:25] LABS: HEMATOCRIT 43.4 % (37-47); HEMOGLOBIN 14.7 g/dL (12.0-16.0); MEAN CELL VOLUME 91.8 fL (80-100); MEAN CORPUSCULAR HEMOGLOBIN 31.1 pg (25-34); MEAN CORPUSCULAR HGB CONC 33.9 g/dl (32-36); MEAN PLATELET VOLUME 9.2 fL (7.4-10.4); PLATELET COUNT 284 K/uL (130-400); RED CELL DISTRIBUTION WIDTH SD 47.3 fL (36.4-46.3)
[2018-01-24 18:03] LABS: ALBUMIN 3.7 gm/dl (3.4-5.0); ALT/SGPT 58 U/L (12-78); BLOOD UREA NITROGEN 19 mg/dl (7-18); CALCIUM 9.7 mg/dl (8.5-10.1); CARBON DIOXIDE 26 mmol/L (21-32); CREATININE 0.97 mg/dl (0.60-1.20); GLUCOSE 86 mg/dl (70-99); LIPASE 91 U/L (73-393); POTASSIUM 4.3 mmol/L (3.5-5.1); SODIUM 138 mmol/L (136-145)
[2018-01-24 18:06] LABS: ALKALINE PHOSPHATASE 106 U/L (45-117); AST/SGOT 24 U/L (15-37); TOTAL PROTEIN 7.4 gm/dl (6.4-8.2)
== END | disposition home or self-care (01) ==
LOC: C.LABPVFM 13:19
PROVIDERS: ATTEND Family Medicine
DX: K59.00 Constipation, unspecified (principal)

== ENCOUNTER → 2018-02-03 | Outpatient (CLI) | payer BC ==
[2018-02-03 13:01] LABS: BASO % 0.4 %; BASO ABS # 0.02 K/uL (0-0.2); EOS % 3.5 %; EOS ABS # 0.19 K/uL (0-0.5); HEMATOCRIT 44.1 % (37-47); HEMOGLOBIN 14.4 g/dL (12.0-16.0); IG# 0.02 K/uL (0.00-0.02); LYMPH % 35.9 %; LYMPH ABS # 1.93 K/uL (1.2-3.4); MEAN CELL VOLUME 92.8 fL (80-100); MEAN CORPUSCULAR HEMOGLOBIN 30.3 pg (25-34); MEAN CORPUSCULAR HGB CONC 32.7 g/dl (32-36); MEAN PLATELET VOLUME 9.5 fL (7.4-10.4); MONO ABS # 0.43 K/uL (0.11-0.59); NEUT % 51.8 %; NEUT ABS # 2.79 K/uL (1.4-6.5); PLATELET COUNT 272 K/uL (130-400); RED CELL DISTRIBUTION WIDTH CV 14.3 % (11.5-14.5); RED CELL DISTRIBUTION WIDTH SD 48.3 fL (36.4-46.3); WHITE BLOOD COUNT 5.38 K/uL (4.8-10.8)
== END | disposition home or self-care (01) ==
LOC: C.LABPVFM 09:05
PROVIDERS: ATTEND Nurse Practitioner Family
DX: D05.12 Intraductal carcinoma in situ of left breast (principal)

== ENCOUNTER → 2018-02-18 | Outpatient (CLI) | payer BC ==
--- NOTE | 2018-02-19 07:58 | MAMMOGRAPHY REPORT ---
BILATERAL DIGITAL DIAGNOSTIC MAMMOGRAM TOMOSYNTHESIS WITH CAD: 02/18/2018 CLINICAL HISTORY: 72-year-old woman with a personal history of right breast cancer status post breast conservation therapy presents at approximately 2 years after treatment to ensure stability. Also du e for annual bilateral screening exam. TECHNIQUE: Bilateral breast tomosynthesis in addition to standard 2D mammography was performed. Spot magnification CC and ML views of each breast were also obtained. Current study was also evaluated w ith a Computer Aided Detection (CAD) system. COMPARISON: Comparison is made to exams dated: 08/08/2017 ultrasound, 08/08/2017 mammogram, 02/04/2017 mammogram, 10/24/2015 mammogram, 10/21/2014 mammogram, and 10/20/2013 mammogram - [facility]. BREAST COMPOSITION: There are scattered areas of fibroglandular density in both breasts. FINDINGS: There is expected architectural distortion and numerous surgical clips in the 6:00 middle t hrough posterior right breast, at the site of prior lumpectomy. A linear scar marker overlies the 6: 00 right breast. There are a few benign rim calcifications in the right breast but no suspicious yaneli uping or cluster of microcalcification. No developing mass, asymmetry or unexpected architectural di stortion is seen in the right breast. There is a possible grouping of faint microcalcifications in the upper outer posterior left breast fo r which additional spot magnification views were obtained. On the additional spot magnification view s only 2 punctate microcalcifications are clearly identified in the area of concern. No definite jonathan picious grouping or cluster. However, given the history of right breast DCIS, a short interval follo w-up left diagnostic mammogram including repeat spot magnification views is recommended to ensure sta bility in 6 months. There are other scattered benign coarse and rim calcifications throughout the le ft breast. Stable asymmetry in the medial left breast. No areas of architectural distortion, obviou s new mass or developing asymmetry. IMPRESSION: ACR-BI-RADS CATEGORY 3: PROBABLY BENIGN 1. Stable posttreatment changes in the right breast, without mammographic evidence of malignancy. R ecommend routine right mammography in 1 year. 2. Newly visualized small loose grouping of faint punctate microcalcifications in the left upper out er quadrant, that could represent benign fibrocystic change. Given the patient's history of malignant calcifications of the right breast, a short interval follow-up left diagnostic tomosynthesis mammogr am including spot magnification views is recommended to ensure stability in 6 months. These results and recommendations were discussed with the patient at the time of the exam. She tenta tively scheduled the follow-up appointment prior to leaving our department. Approximately 10% of breast cancers are not detected with mammography. A negative mammographic report should not delay biopsy if a clinically suggestive mass is present. Cayla Cervantes M.D. ay/:02/18/2018 12:25:53 Yarn Finisher: Zelda JACOBSON(Rosalba)(Alycia), [facility] letter sent: Follow Up Recommended 3 BI-RADS Code: ACR-BI-RADS Category 3: Probably Benign
== END | disposition home or self-care (01) ==
LOC: C.MAMM 10:25
PROVIDERS: ATTEND Family Medicine
DX: R92.0 Mammographic microcalcification found on diagnostic imaging of breast (principal)

== ENCOUNTER → 2018-04-08 | Outpatient (CLI) | payer BC | END | disposition home or self-care (01) | LOC: C.PATHSPEC 17:14 | PROVIDERS: ATTEND Plastic Surgery | DX: L82.1 Other seborrheic keratosis (principal); D23.39 Other benign neoplasm of skin of other parts of face ==

== ENCOUNTER → 2018-06-26 | Outpatient (CLI) | payer BC ==
[~2018-06-26] MED LIST changes: -ANAS1TAB19 PO; +ANAS1TAB59 PO
== END | disposition home or self-care (01) ==
LOC: C.LABPVFM 09:06
PROVIDERS: ATTEND Family Medicine
DX: E89.0 Postprocedural hypothyroidism (principal); E78.00 Pure hypercholesterolemia, unspecified